=== PATIENT | female | born 1970 ===

== ENCOUNTER 2020-12-21 07:11 | Day surgery (SDC) | payer OTHER ==
[~2020-12-21] VITALS: Ht 157.5 cm; Wt 74.8 kg
[~2020-12-21 07:11] MED LIST: MEGEST PO; SYNTHROID50 MCG PO
== END 2020-12-21 17:15 | disposition home or self-care (01) ==
LOC: CIR.AMB 07:11
PROVIDERS: ATTEND Specialist
DX: D26.0 Other benign neoplasm of cervix uteri (principal); D26.1 Other benign neoplasm of corpus uteri; Z20.822 Contact with and (suspected) exposure to COVID-19

== ENCOUNTER 2021-03-21 11:45 | Inpatient (IN) | payer OTHER ==
[~2021-03-21] VITALS: Ht 157.5 cm; Wt 77.1 kg
[2021-03-22] MEDS ORDERED: MEGESTROL ACETA40 MG (11:53)
[2021-03-22] MEDS ORDERED: FOLIC ACID1 MG (11:54)
== END 2021-03-24 12:04 | disposition home or self-care (01) | DRG 743 ==
LOC: OB/GYN 03-22 06:54 → O/R 03-22 06:54 → SURH 03-22 10:30 → OB/GYN 03-22 15:26
PROVIDERS: ADMIT Specialist; ATTEND Specialist
PROC: 0UB77ZZ Excision of Bilateral Fallopian Tubes, Via Natural or Artificial Opening (ICD-10-PCS; 2021-03-22)
PROC: 0UT9FZZ Resection of Uterus, Via Natural or Artificial Opening With Percutaneous Endoscopic Assistance (ICD-10-PCS; principal; 2021-03-22 10:30)
DX: N80.0 Endometriosis of uterus (principal); N72 Inflammatory disease of cervix uteri; D26.1 Other benign neoplasm of corpus uteri; D28.2 Benign neoplasm of uterine tubes and ligaments